=== PATIENT | male | born 1985 | race Two or more races ===

== ENCOUNTER 2020-08-19 22:28 | Emergency (ER) | payer OTHER ==
[~2020-08-19] VITALS: Ht 165.1 cm; Wt 72.6 kg
[2020-08-19] MEDS ORDERED: ATACAND4 MG PO (22:42)
[2020-08-19] MEDS ORDERED: LIPOFEN50 MG PO (22:42)
[2020-08-19] MEDS ORDERED: PRAVASTATIN SOD40 MG PO (22:42)
[2020-08-20] MEDS ORDERED: ZYRTEC10 MG PO (03:12)
[2020-08-20] MEDS ORDERED: ACETAMINOPHEN650 M2 PO (03:12)
[2020-08-20] MEDS ORDERED: MUCINEX DM ER1 EAC1 PO (03:12)
[2020-08-20] MEDS ORDERED: MEDROLPACK PO (03:12)
== END 2020-08-20 03:59 | disposition home or self-care (01) ==
LOC: ER 22:28
DX: J06.9 Acute upper respiratory infection, unspecified (principal); B34.9 Viral infection, unspecified; Z03.818 Encounter for observation for suspected exposure to other biological agents ruled out
CPT/HCPCS: 71260; Q9965